=== PATIENT | male | born 1985 | race Caucasian/White ===

== ENCOUNTER 2019-01-21 12:16 | Emergency (ER) | payer SELFPAY ==
[2019-01-21 12:51] LABS: Absolute Lymphocytes (CBC) 1.4 K/uL (0.7-4.9); Basophils % 0.4 % (0-1.3); Hematocrit 45.6 % (39.6-49.0); Lymphocytes % 19.4 % (15.3-44.8); MPV 9.1 fL (7.6-11.3); RBC Red Blood Cell Count 5.05 M/uL (4.33-5.43)
[2019-01-21 12:58] LABS: Protime INR 1.07
[2019-01-21 13:08] LABS: ALT/SGPT 38 U/L (12-78); AST/SGOT 12 U/L (15-37); Albumin 3.9 g/dL (3.4-5.0); Alkaline Phosphatase 84 U/L (45-117); BUN Blood Urea Nitrogen 12 mg/dL (7-18); Bicarbonate 27 mmol/L (21-32); Bilirubin Direct 0.2 mg/dL (0-0.2); Bilirubin Total 0.9 mg/dL (0.2-1.0); Glucose Level 82 mg/dL (74-106); Magnesium 2.2 mg/dL (1.8-2.4); NT PRO-BNP 22 pg/mL (<125); Potassium 3.8 mmol/L (3.5-5.1); Sodium Level 141 mmol/L (136-145); Troponin (Emerg Dept Use Only) < 0.02 ng/mL (0.0-0.045)
--- NOTE | 2019-01-21 13:12 | RAD REPORT ---
EXAM DESCRIPTION: RAD - Chest Single View - 01/21/2019 1:01 pm CLINICAL HISTORY: Chest pain COMPARISON: None. TECHNIQUE: AP portable chest image was obtained 1247 hours . FINDINGS: Lungs are clear. Heart and vasculature are normal. No measurable pleural effusion and no p neumothorax. No acute bony abnormality seen. No acute aortic findings suspected. IMPRESSION: No acute cardiopulmonary process.
--- NOTE | 2019-01-21 13:21 | ER ---
Nurse's Notes [facility] Name: Kenneth Michele Age: 33 yrs Sex: Male : 1985 Arrival Date: 01/21/2019 Time: 12:18 Bed 7 Private MD: Diagnosis: Chest pain, unspecified Presentation: 01/21 12:28 Presenting complaint: Patient states: Last night I was laying in bed and started la1 feeling a pain on the side of my chest. It hurts worse when I take a deep breath but is constant. Transition of care: patient was not received from another setting of care. Onset of symptoms was January 21, 2019. Risk Assessment: Do you want to hurt yourself or someone else? Patient reports no desire to harm self or others. Initial Sepsis Screen: Does the patient meet any 2 criteria? No. Patient's initial sepsis screen is negative. Does the patient have a suspected source of infection? No. Patient's initial sepsis screen is negative. Care prior to arrival: None. 12:28 Method Of Arrival: Ambulatory la1 12:28 Acuity: CAIMLA 3 la1 Historical: - Allergies: 12:29 No Known Allergies; la1 - Home Meds: 12:29 None [Active]; la1 - PMHx: 12:29 None; la1 - PSHx: 12:29 Appendectomy; la1 - Immunization history:: Adult Immunizations up to date. - Social history:: Smoking status: Patient/guardian denies using tobacco. - Ebola Screening: : No symptoms or risks identified at this time. Screenin:30 Abuse screen: Denies threats or abuse. Nutritional screening: No deficits noted. la1 Tuberculosis screening: No symptoms or risk factors identified. Fall Risk None identified. Assessment: 12:29 General: Appears uncomfortable, Behavior is calm, cooperative. Pain: Complains of pain la1 in left lateral anterior chest Pain does not radiate. Pain currently is 2 out of 10 on a pain scale. Quality of pain is described as sharp, Pain began 1 day ago. Neuro: Level of Consciousness is awake, alert, obeys commands, Oriented to person, place, time, situation. Cardiovascular: Denies lightheadedness, shortness of breath, syncope, Heart tones S1 S2 present Capillary refill < 3 seconds Patient's skin is warm and dry. Rhythm is sinus rhythm. Respiratory: Airway is patent Respiratory effort is even, unlabored, Respiratory pattern is regular, symmetrical, Breath sounds are clear bilaterally. GI: No signs and/or symptoms were reported involving the gastrointestinal system. : No signs and/or symptoms were reported regarding the genitourinary system. 13:31 Reassessment: Patient appears in no apparent distress at this time. No changes from la1 previously documented assessment. Patient and/or family updated on plan of care and expected duration. Pain level reassessed. Patient is alert, oriented x 3, equal unlabored respirations, skin warm/dry/pink. Vital Signs: 12:29 BP 146 / 97; Pulse 86; Resp 16; Temp 98.7; Pulse Ox 98% on R/A; Weight 113.4 kg; Height la1 6 ft. 3 in. (190.50 cm); 13:31 BP 136 / 74; Pulse 84; Resp 16; Pulse Ox 98% on R/A; la1 12:29 Body Mass Index 31.25 (113.40 kg, 190.50 cm) la1 ED Course: 12:18 Patient arrived in ED. mr 12:20 Hussain Smith PA is PHCP. jmm 12:20 He Villegas MD is Attending Physician. jmm 12:24 EKG done, by ct scan special procedures technologist. reviewed by Hussain LINDSAY. at1 12:27 Jerry Roberts, TERELL is Primary Nurse. la1 12:28 Triage completed. la1 12:29 Arm band placed on left wrist. la1 12:30 Call light in reach. Side rails up X 1. monitoring analyst on. Pulse ox on. NIBP on. la1 12:31 No provider procedures requiring assistance completed. Patient maintains SpO2 la1 saturation greater than 95% on room air. 12:37 Inserted saline lock: 20 gauge in right antecubital area, using aseptic technique. la1 Blood collected. 13:02 XRAY Chest (1 view) In Process Unspecified. EDMS 13:32 intact, bleeding controlled, No redness/swelling at site. Pressure dressing applied. la1 Administered Medications: No medications were administered Outcome: 13:19 Discharge ordered by . jmm 13:32 Discharged to home ambulatory. la1 13:32 Condition: stable 13:32 Discharge instructions given to patient, Instructed on discharge instructions, follow up and referral plans. Demonstrated understanding of instructions, follow-up care. 13:32 Patient left the ED. la1 Signatures: Dispatcher [employer] EDMS Hussain Smith PA PA jmm Rivera, Mary mr Lopez, Teresa, trim mounter EKG Tat1 Jerry Roberts RN RN la1
--- NOTE | 2019-01-21 13:21 | EDPHYS ---
Physician Documentation [facility] Name: Kenneth Michele Age: 33 yrs Sex: Male : 1985 Arrival Date: 01/21/2019 Time: 12:18 Bed 7 Private MD: ED Physician He Villegas HPI: 01/21 12:21 This 33 yrs old Male presents to ER via Ambulatory with complaints of Chest [facility] Pain. 12:21 The patient or guardian reports chest pain that is located primarily in the anterior [facility] chest wall, left. The pain does not radiate. Associated signs and symptoms: Pertinent negatives: abdominal pain, dizziness, headache, lower extremity pain, lower extremity swelling, recent travel, shortness of breath. The chest pain is described as sharp. This is a 33 year old male with no chronic medical conditions that presents to the ED with complaints of left sided chest pain beginning last night. Pain is worsened with deep inspiration. Patient denies injury. Denies history of CAD, HTN, HLP, DM. . Historical: - Allergies: 12:29 No Known Allergies; la1 - Home Meds: 12:29 None [Active]; la1 - PMHx: 12:29 None; la1 - PSHx: 12:29 Appendectomy; la1 - Immunization history:: Adult Immunizations up to date. - Social history:: Smoking status: Patient/guardian denies using tobacco. - Ebola Screening: : No symptoms or risks identified at this time. ROS: 12:21 Constitutional: Negative for fever, chills, and weight loss. jmm 12:21 Abdomen/GI: Negative for abdominal pain, nausea, vomiting, diarrhea, and constipation, Back: Negative for injury and pain, Skin: Negative for injury, rash, and discoloration, Neuro: Negative for headache, weakness, numbness, tingling, and seizure. 12:21 Cardiovascular: Positive for chest pain. 12:21 Respiratory: Positive for shortness of breath. 12:21 All other systems are negative. Exam: 12:21 Constitutional: This is a well developed, well nourished patient who is awake, alert, jmm and in no acute distress. Head/Face: atraumatic. Eyes: EOMI, no conjunctival erythema appreciated ENT: Moist Mucus Membranes Neck: Trachea midline, Supple 12:21 Abdomen/GI: Non distended, soft Back: Normal ROM Skin: General appearance color normal MS/ Extremity: Moves all extremities, no obvious deformities appreciated, no edema noted to the lower extremities Neuro: Awake and alert, normal gait Psych: Behavior is normal, Mood is normal, Patient is cooperative and pleasant 12:21 Chest/axilla: Palpation: tenderness, of the left lateral anterior chest, that totally reproduces the patient's complaints. 12:21 Cardiovascular: Rate: normal, Rhythm: regular. 12:21 Respiratory: the patient does not display signs of respiratory distress, Respirations: normal, Breath sounds: are clear throughout. 13:08 ECG was reviewed by the Attending Physician. [facility] Vital Signs: 12:29 BP 146 / 97; Pulse 86; Resp 16; Temp 98.7; Pulse Ox 98% on R/A; Weight 113.4 kg; Height la1 6 ft. 3 in. (190.50 cm); 13:31 BP 136 / 74; Pulse 84; Resp 16; Pulse Ox 98% on R/A; la1 12:29 Body Mass Index 31.25 (113.40 kg, 190.50 cm) la1 MDM: 12:21 Patient medically screened. [facility] 13:18 Data reviewed: vital signs, nurses notes. Counseling: I had a detailed discussion with [facility] the patient and/or guardian regarding: the historical points, exam findings, and any diagnostic results supporting the discharge/admit diagnosis, lab results, radiology results, the need for outpatient follow up, to return to the emergency department if symptoms worsen or persist or if there are any questions or concerns that arise at home. ED course: HEART SCORE = 1 PERC NEGATIVE. 01/21 12:32 Order name: Basic Metabolic Panel [facility] 01/21 12:32 Order name: CBC with Diff [facility] 01/21 12:32 Order name: LFT's; Complete Time: 13:14 [facility] 01/21 12:32 Order name: Magnesium; Complete Time: 13:14 [facility] 01/21 12:32 Order name: NT PRO-BNP; Complete Time: 13:14 [facility] 01/21 12:32 Order name: PT-INR; Complete Time: 13:14 [facility] 01/21 12:32 Order name: Troponin (emerg Dept Use Only); Complete Time: 13: [facility] 01/21 12:32 Order name: XRAY Chest (1 view); Complete Time: 13:14 [facility] 01/21 12:32 Order name: EKG; Complete Time: 12:33 [facility] 01/21 12:32 Order name: Cardiac monitoring; Complete Time: 12:37 [facility] 01/21 12:32 Order name: EKG - Nurse/Tech; Complete Time: 12:37 [facility] 01/21 12:32 Order name: IV Saline Lock; Complete Time: 12:37 [facility] 01/21 12:33 Order name: Basic Metabolic Panel; Complete Time: 13:14 [facility] 01/21 12:33 Order name: CBC with Automated Diff; Complete Time: 13:14 [facility] 01/21 12:32 Order name: Labs collected and sent; Complete Time: 12:37 [facility] 01/21 12:32 Order name: O2 Per Protocol; Complete Time: 12:37 [facility] 01/21 12:32 Order name: O2 Sat Monitoring; Complete Time: 12:37 jmm EC:08 Rate is 75 beats/min. Rhythm is regular. QRS Milton is Normal. NV interval is normal. QRS jmm interval is normal. QT interval is normal. No Q waves. T waves are Normal. No ST changes noted. Reviewed by me. Administered Medications: No medications were administered Disposition: 13:50 Co-signature as Attending Physician, He Villegas MD I agree with the assessment and carine plan of care. Disposition: 01/21/19 13:19 Discharged to Home. Impression: Chest pain, unspecified. - Condition is Stable. - Discharge Instructions: Nonspecific Chest Pain. - Medication Reconciliation Form, Thank You Letter, Antibiotic Education, Prescription Opioid Use form. - Follow up: Private Physician; When: 2 - 3 days; Reason: Recheck today's complaints, Continuance of care, Re-evaluation by your physician. Signatures: Dispatcher [employer] He Brantley MD MD cha Mickail, Joel, PA PA jmm Attema, Lee RN RN la1 Corrections: (The following items were deleted from the chart) 13:32 13:19 01/21/2019 13:19 Discharged to Home. Impression: Chest pain, unspecified. la1 Condition is Stable. Forms are Medication Reconciliation Form, Thank You Letter, Antibiotic Education, Prescription Opioid Use. Follow up: Private Physician; When: 2 - 3 days; Reason: Recheck today's complaints, Continuance of care, Re-evaluation by your physician. mell
--- NOTE | 2019-01-22 11:48 | EKG ---
Test Date: 2019-01-21 Test Time: 12:23:40 C D Area Supervisor: JOCELYN MEASUREMENT RESULTS: Intervals: Rate: 75 AR: 136 QRSD: 84 QT: 360 QTc: 402 [place]: P: 42 AR: 136 QRS: 36 T: 48 INTERPRETIVE STATEMENTS: Normal sinus rhythm Normal ECG No previous ECG available for comparison Electronically Signed On 01-22-19 11:45:23 CDT by Milton Pryor
== END 2019-01-21 13:32 | disposition home or self-care (01) ==
LOC: ER 12:16
DX: R07.9 Chest pain, unspecified (principal)
CPT/HCPCS: 36415; 71045; 80048; 80076; 83735; 83880; 84484; 85025; 85610; 93005; 99285

== ENCOUNTER 2022-04-16 23:07 | Emergency (ER) | payer OTHER ==
--- OUTSIDE RECORDS SUMMARY | 2022-04-16 23:16 | XMS REPORT | Continuity of Care Document ---
:1985 Author Organization [facility] t Address [address] [place] [address] Care Team Providers Name Role Phone ChesterMirtha alvarenga Attending Clinician Unavailable Problems Condition Condition Condition Status Onset Resolution Last Treating Co mments Source Name Details Category Date Date Treatment Clinician Date [id number] Other Problem Active Common chronic [facility] [id number] Depression Problem Active Co mmon with [facility] anxiety - [facility] [id number] Neuropathy Problem Active Co mmon [facility] [id number] Allergic Problem Active Commo n rhinitis, [facility] trigger [id number] Irritable Problem Active Comm on bowel [facility] syndrome [facility] with [facility] [id number] Acquired Problem Active Comm on scoliosis [facility] Allergies, Adverse Reactions, Alerts This patient has no known allergies or adverse reactions. Social History Social Habit Start Date Stop Date Quantity Comments Source History of Tobacco Former Smoker Com mon [facility] Sex Assigned At Com mon [facility] Smoking Status Start Date Stop Date Source Former Smoker 2020-03-14 00:00:00 2020-03-14 00:00:00 Common S pirit - [facility] Medications Ordered Filled Start Stop Current Ordering Indication Dosage Frequency Signature Comments Components Source Medication Medication Date Date Medication? Clinician (SIG) Name Name Montelukast Montelukast 2019-06 No 1{table QD Montelukas Sodium 10 Sodium 10 0-06 t} t Sodium MG MG 00:00: 10 MG 00 Immunizations Ordered Immunization Filled Immunization Date Status Commen ts Source Name Name Afluria single dose Afluria single dose 2019-03-17 Completed [facility] 08:40:00 [facility] Adacel (Tdap) Adacel (Tdap) 2019-03-15 Completed Common S pirit 08:40:00 [facility] Vital Signs Vital Name Observation Time Observation Value Comments Source height 2020-03-14 09:00:00 74 [in_i] [facility] weight 2020-03-14 09:00:00 259.2 [lb_av] [facility] temperature 2020-03-14 09:00:00 97.9 [degF] [facility] bmi 2020-03-14 09:00:00 33.28 kg/m2 [facility] oximetry 2020-03-14 09:00:00 98 % [facility] respiratory rate 2020-03-14 09:00:00 18 /min Comm on [facility] blood pressure 2020-03-14 09:00:00 143 mm[Hg] [facility] systolic [facility] blood pressure 2020-03-14 09:00:00 88 mm[Hg] [facility] diastolic [facility] Procedures This patient has no known procedures. Encounters Start End Encounter Admission Attending Care Care Encounter Source Date/Time Date/Time Type Type Clinicians Facility Department ID 2022-04-01 Outpatient Yaquelin, [facility] [id number] Common 15:21:01 Mirtha [id number] [facility] 2021-07-04 Outpatient [facility] [id number] Common 11:52:11 [id number] [facility] 2020-03-14 2020-03-14 [facility] [id number] Co mmon 00:00:00 00:00:00 VISIT DOMINIK Seaman it PT LEVEL 3 [facility] Results This patient has no known results.
[2022-04-17] MEDS ORDERED: FAMOTIDINE 20 MG/2 ML VIAL IV ONE (00:08)
[2022-04-17] MEDS ORDERED: NA CHLORIDE 0.9% 1,000 ML ONE (00:08)
[2022-04-17] MEDS ORDERED: METHYLPREDNISOLONE 125 MG INJ ONE (00:08)
[2022-04-17] MEDS ORDERED: DIPHENHYDRAMINE 50 MG/ML VIAL ONE (00:08)
--- NOTE | 2022-04-17 01:51 | ER ---
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 Coronavirus screen: Vaccine status: Patient reports receiving the 2nd dose of the covid vaccine. Ebola Screen: Patient negative for fever greater than or equal to 101.5 degrees Fahrenheit, and additional compatible Ebola Virus Disease symptoms. Onset: The symptoms/episode began/occurred suddenly, 1 hour(s) ago. Anaphylaxis evaluation, no signs or symptoms of anaphylaxis were noted. Initial Sepsis Screen: Does the patient meet any 2 criteria? No. Patient's initial sepsis screen is negative. Does the patient have a suspected source of infection? No. Patient's initial sepsis screen is negative. Risk Assessment: Do you want to hurt yourself or someone else? Patient reports no desire to harm self or others. 23:34 Method Of Arrival: Ambulatory kl 23:34 Acuity: CAMILA 4 kl 04/17 00:22 Onset of symptoms is unknown. as6 Triage Assessment: 04/16 23:38 General: Appears in no apparent distress. comfortable, Behavior is calm, cooperative. kl EENT: swelling noted to bottom lip. Respiratory: No deficits noted. Airway is patent Trachea midline Respiratory effort is even, unlabored, no difficulty handling secretions. Historical: - Allergies: 23:38 No Known Allergies; kl - PMHx: 23:38 Hives; RA; scoliosis; kl - PSHx: 23:38 Appendectomy; kl - Immunization history:: Adult Immunizations up to date. - Social history:: Smoking status: Patient reports the use of cigarette tobacco products, former. Screenin/09 00:21 Abuse screen: Denies threats or abuse. Denies injuries from another. Nutritional as6 screening:. Tuberculosis screening: No symptoms or risk factors identified. Fall Risk None identified. Assessment: 00:20 General: Appears in no apparent distress. Behavior is calm, cooperative. Pain: as6 Complains of pain in generalized Quality of pain is described as stinging. Derm: Reports itching. Vital Signs: 04/16 23:34 BP 154 / 94; Pulse 72; Resp 16; Temp 98.2(O); Pulse Ox 97% on R/A; Weight 115.67 kg kl (R); Height 6 ft. 1 in. (185.42 cm); Pain 0/10; 04/17 00:22 BP 111 / 82; Pulse 76; Resp 18 S; Pulse Ox 98% on R/A; as6 01:35 BP 139 / 84; Pulse 80; Resp 18 S; Pulse Ox 98% on R/A; as6 04/16 23:34 Body Mass Index 33.64 (115.67 kg, 185.42 cm) ED Course: 04/16 23:13 Patient arrived in ED. ja2 23:15 He Perez PA is PHCP. cp 23:15 Angle Yee MD is Attending Physician. cp 23:29 Wang Terry RN is Primary Nurse. as6 23:38 Triage completed. kl 23:46 Arm band placed on. as6 04/17 00:20 Inserted saline lock: 20 gauge in left forearm, using aseptic technique. as6 00:21 Bed in low position. Call light in reach. as6 01:35 No provider procedures requiring assistance completed. IV discontinued, intact, as6 bleeding controlled, No redness/swelling at site. Pressure dressing applied. Administered Medications: 00:19 Drug: Benadryl (diphenhydrAMINE) 50 mg Route: IVP; Site: left forearm; as6 01:34 Follow up: Response: No adverse reaction as6 00:19 Drug: Pepcid (famotidine) 20 mg Route: IVP; Site: left forearm; as6 01:34 Follow up: Response: No adverse reaction as6 00:19 Drug: SOLU-Medrol (methylPrednisoLONE) 125 mg Route: IVP; Site: left forearm; as6 01:34 Follow up: Response: No adverse reaction as6 00:19 Drug: NS 0.9% 1000 ml Route: IV; Rate: 1 bolus; Site: left forearm; as6 01:34 Follow up: Response: No adverse reaction; IV Status: Completed infusion; IV Intake: as6 1000ml Medication: 00:22 VIS not applicable for this client. as6 Intake: 01:34 IV: 1000ml; Total: 1000ml. as6 Outcome: 01:28 Discharge ordered by MD. pereira 01:35 Discharged to home ambulatory. as6 01:35 Condition: stable 01:35 Discharge instructions given to patient, Instructed on discharge instructions, follow up and referral plans. medication usage, Demonstrated understanding of instructions, follow-up care, medications, Prescriptions given X 3. 01:36 Patient left the ED. as6 Signatures: Britney Gill RN RN He Coto PA PA cp Alexander, Jessica ja2 Slawson, Ashby, RN RN as6
--- NOTE | 2022-04-17 01:51 | EDPHYS ---
Physician Documentation [facility] Name: Kenneth Michele Age: 36 yrs Sex: Male : 1985 Arrival Date: 04/16/2022 Time: 23:13 Bed 15 Private MD: ED Physician Angle Yee HPI: 04/17 00:00 This 36 yrs old Male presents to ER via Ambulatory with complaints of Hives, Allergic cp Reaction. 00:00 The patient presents with rash, that is diffuse. Onset: The symptoms/episode cp began/occurred 12 week(s) ago. 00:00 Associated signs and symptoms: Pertinent positives: lower lip swelling that started cp tonight. 00:00 Possible causes: The patient has no known obvious cause for the symptoms. At home the cp patient or guardian has treated the symptoms with OTC Kae. Severity of symptoms: in the emergency department the symptoms are unchanged despite home interventions. Historical: - Allergies: 04/16 23:38 No Known Allergies; kl - PMHx: 23:38 Hives; RA; scoliosis; kl - PSHx: 23:38 Appendectomy; kl - Immunization history:: Adult Immunizations up to date. - Social history:: Smoking status: Patient reports the use of cigarette tobacco products, former. ROS: 04/17 00:05 Constitutional: Negative for body aches, chills, fever, poor PO intake. cp 00:05 Eyes: Negative for injury, pain, redness, and discharge. cp 00:05 ENT: Positive for lower lip swelling, Negative for sore throat, difficulty swallowing, difficulty handling secretions. 00:05 Cardiovascular: Negative for chest pain. 00:05 Respiratory: Negative for cough, shortness of breath, wheezing. 00:05 Abdomen/GI: Negative for abdominal pain, nausea, vomiting, and diarrhea. 00:05 Skin: Positive for rash, diffusely. 00:05 All other systems are negative. Exam: 00:10 Constitutional: The patient appears in no acute distress, alert, awake, non-toxic, well cp developed, well nourished. 00:10 Head/Face: Normocephalic, atraumatic. cp 00:10 Eyes: Periorbital structures: appear normal, Conjunctiva: normal, no exudate, no injection, Sclera: no appreciated abnormality, Lids and lashes: appear normal, bilaterally. 00:10 ENT: External ear(s): are unremarkable, Nose: is normal, Mouth: Lips: mild swelling of lower lip, Oral mucosa: pink and intact, moist, Posterior pharynx: Airway: no evidence of obstruction, patent, swelling, is not appreciated, erythema, is not appreciated. 00:10 Neck: ROM/movement: is normal, is supple, without pain, no range of motions limitations. 00:10 Cardiovascular: Rate: normal, Rhythm: regular. 00:10 Respiratory: the patient does not display signs of respiratory distress, Respirations: normal, no use of accessory muscles, no retractions, labored breathing, is not present, Breath sounds: are clear throughout, no decreased breath sounds, no stridor, no wheezing. 00:10 Abdomen/GI: Exam negative for discomfort, distension, guarding, Inspection: abdomen appears normal. 00:10 Skin: consistent with urticaria, and is diffusely located. 00:10 Neuro: Orientation: to person, place \T\ time. Mentation: is normal. Vital Signs: 04/16 23:34 BP 154 / 94; Pulse 72; Resp 16; Temp 98.2(O); Pulse Ox 97% on R/A; Weight 115.67 kg kl (R); Height 6 ft. 1 in. (185.42 cm); Pain 0/10; 04/17 00:22 BP 111 / 82; Pulse 76; Resp 18 S; Pulse Ox 98% on R/A; as6 01:35 BP 139 / 84; Pulse 80; Resp 18 S; Pulse Ox 98% on R/A; as6 04/16 23:34 Body Mass Index 33.64 (115.67 kg, 185.42 cm) MDM: 04/16 23:47 Patient medically screened. cp 04/17 00:00 Differential diagnosis: anaphylaxis, angioedema, urticaria. cp 01:27 Data reviewed: vital signs, nurses notes. 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 Response to treatment: the patient's symptoms have mildly improved after treatment, and as a result, I will discharge patient. 04/16 23:56 Order name: IV; Complete Time: 00:19 cp Administered Medications: 00:19 Drug: Benadryl (diphenhydrAMINE) 50 mg Route: IVP; Site: left forearm; as6 01:34 Follow up: Response: No adverse reaction as 00:19 Drug: Pepcid (famotidine) 20 mg Route: IVP; Site: left forearm; as6 01:34 Follow up: Response: No adverse reaction 00:19 Drug: SOLU-Medrol (methylPrednisoLONE) 125 mg Route: IVP; Site: left forearm; as6 01:34 Follow up: Response: No adverse reaction 00:19 Drug: NS 0.9% 1000 ml Route: IV; Rate: 1 bolus; Site: left forearm; as6 01:34 Follow up: Response: No adverse reaction; IV Status: Completed infusion; IV Intake: as6 1000ml Disposition Summary: 04/17/22 01:28 Discharge Ordered Location: Home cp Problem: an ongoing problem cp Symptoms: have improved cp Condition: Stable cp Diagnosis - Allergy, unspecified cp Followup: cp - With: Private Physician - When: 2 - 3 days - Reason: Recheck today's complaints Discharge Instructions: - Discharge Summary Sheet cp - Hives cp - Allergy Skin Testing cp - Allergy Blood Testing cp Forms: - Medication Reconciliation Form cp - Thank You Letter cp - Antibiotic Education cp - Prescription Opioid Use cp Prescriptions: - Pepcid 20 mg Oral Tablet - take 1 tablet by ORAL route every 12 hours for 5 days; 10 tablet; Refills: 0, cp Product Selection Permitted - Prednisone 20 mg Oral Tablet - take 2 tablets by ORAL route once daily for 5 days; 10 tablet; Refills: 0, cp Product Selection Permitted Signatures: Britney Gill, RN RN He Coto PA PA cp Wang Terry RN RN as6
[2022-04-17 06:18] VITALS: TEMP 98.2
[2022-04-17 06:24] VITALS: BP 139/84; O2SAT 98
== END 2022-04-17 01:36 | disposition home or self-care (01) ==
LOC: ER 23:07
DX: R21 Rash and other nonspecific skin eruption (principal); Z91.09 Other allergy status, other than to drugs and biological substances
CPT/HCPCS: 96361; 96375; 96374; 99283; J1200; J7030; J2930

== ENCOUNTER 2023-02-11 10:28 | Emergency (ER) | payer OTHER ==
--- OUTSIDE RECORDS SUMMARY | 2023-02-11 10:32 | XMS REPORT | Continuity of Care Document ---
:1985 Author Organization [facility] t Address [address] [place] [address] [place] [id number] Care Team Providers Name Role Phone PCP, PATIENT DOES NOT HAVE A Primary Care Physician Unavaila Mirtha Gaytan Attending Clinician Unavailable BOLIVAR BOOTH Attending Clinician Unavailable Doctor Unassigned, [place] Attending Clinician Unavailable Amber Latif MD Attending Clinician Brie Hyatt MD Attending Clinician BRIE HYATT Attending Clinician Unavailable Payers Payer Name Policy Type Policy Number Effective Date Expiration Date S cristobal [facility] [id number] 2022 00:00:00 [place] [id number] 2022 [facility] 00:00:00 [facility] Problems Condition Condition Condition Status Onset Resolution Last Treating Co mments Source Name Details Category Date Date Treatment Clinician Date [id number] Other Problem Common chronic Spirit pain [facility] [id number] Chronic Problem Commo n sciatica Spirit of left - [facility] side [facility] [id number] Depression Problem Co mmon with Spirit anxiety - [facility] [id number] Neuropathy Problem Co mmon [facility] - [facility] [id number] Allergic Problem Commo n rhinitis, Spirit unspecifie - [facility]I d [facility] seasonalit 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 on and Medical diarrhea Center [id number] Acquired Problem Comm on scoliosis [facility] - [facility] No known No known Disease Unive rs active active ity of problems problems [facility] Allergies, Adverse Reactions, Alerts Allergy Allergy Status Severity Reaction(s) Onset Inactive Treating Comm ents Source Name Type Date Date Clinician NO KNOWN Drug Active Univers ALLERGIE Class ity of S [facility] Social History Social Habit Start Date Stop Date Quantity Comments Source History of Tobacco [facility] Use [facility] Exposure to 2022-04-15 2022-04-25 Not sure [facility] SARS-CoV-2 (event) 00:00:00 10:51:00 [facility] Sex Ass[birth year] [facility] 00:00:00 00:00:00 Medical Branch Smoking Status Start Date Stop Date Source Tobacco smoking [facility] xa consumption unknown Medical Bran ch Former Smoker 2022-06-20 00:00:00 2022-06-20 [facility] 00:00:00 [facility] nter Medications Ordered Filled Start Stop Current Ordering Indication Dosage Frequency Signature Comments Components Source Medication Medication Date Date Medication? Clinician (SIG) Name Name Diclofenac Diclofenac 2022- No 1{table BID Diclofenac Sodium 50 Sodium 50 07-15 t_as_ne Sodium 50 MG MG 00:00: 00:00 eded} MG 00 :00 Diclofenac Diclofenac 2022- No 1{table BID Diclofenac Sodium 50 Sodium 50 07-15- t_as_ne Sodium 50 MG MG 00:00: 00:00 eded} MG 00 :00 Venlafaxine Venlafaxine No 1{table QD Venlafaxin HCl ER 37.5 HCl ER 37.5 1-16 t_with_ e HCl ER MG MG 00:00: food} 37.5 MG 00 Venlafaxine Venlafaxine No 1{table QD Venlafaxin HCl ER 37.5 HCl ER 37.5 1-16 t_with_ e HCl ER MG MG 00:00: food} 37.5 MG 00 Venlafaxine Venlafaxine No 1{table QD Venlafaxin HCl ER 37.5 HCl ER 37.5 1-16 t_with_ e HCl ER MG MG 00:00: food} 37.5 MG 00 Venlafaxine Venlafaxine No 1{table QD Venlafaxin HCl ER 37.5 HCl ER 37.5 1-16 t_with_ e HCl ER MG MG 00:00: food} 37.5 MG 00 Venlafaxine Venlafaxine No 1{table QD Venlafaxin HCl ER 37.5 HCl ER 37.5 1-16 t_with_ e HCl ER MG MG 00:00: food} 37.5 MG 00 EPINEPHrine 2021-06- No [id number] .3mg 0.3 mL by Univers (EPIPEN 06-2518 Intramuscu ity o f 2-MARIBELL) 0.3 00:00: 05:59 lar route [place] mg/0.3 mL 00 :00 once now Medica l injection for 1 Branch dose. EPINEPHrine 2021-06- No [id number] .3mg 0.3 mL by Univers (EPIPEN 06-2518 Intramuscu ity o f 2-MARIBELL) 0.3 00:00: 05:59 lar route [place] mg/0.3 mL 00 :00 once now Medica l injection for 1 Branch dose. Montelukast Montelukast 2019-06 No 1{table QD Montelukas Sodium 10 Sodium 10 0-06 t} t Sodium MG MG 00:00: 10 MG 00 Montelukast Montelukast 2019-06 No 1{table QD Montelukas Sodium 10 Sodium 10 0-06 t} t Sodium MG MG 00:00: 10 MG 00 Montelukast Montelukast 2019-06 No 1{table QD Montelukas Sodium 10 Sodium 10 0-06 t} t Sodium MG MG 00:00: 10 MG 00 Montelukast Montelukast 2019-06 No 1{table QD Montelukas Sodium 10 Sodium 10 0-06 t} t Sodium MG MG 00:00: 10 MG 00 Montelukast Montelukast 2019-06 No 1{table QD Montelukas Sodium 10 Sodium 10 0-06 t} t Sodium MG MG 00:00: 10 MG 00 Montelukast Montelukast 2019-06 No 1{table QD Montelukas Sodium 10 Sodium 10 0-06 t} t Sodium MG MG 00:00: 10 MG 00 No known No No known Unive rs medications 2-05 medication it y of 16:49: s [address] Branch Immunizations Ordered Immunization Filled Immunization Date Status Commen ts Source Name Name Flucelvax - single Flucelvax - single 2022-06-20 Completed [facility] dose syringe dose syringe 13:19:00 - [facility] Flucelvax - single Flucelvax - single 2022-06-20 Completed [facility] dose syringe dose syringe 13:19:00 - [facility] Flucelvax - single Flucelvax - single 2022-06-20 Completed [facility] dose syringe dose syringe 13:19:00 - [facility] Flucelvax - single Flucelvax - single 2022-06-20 Completed [facility] dose syringe dose syringe 13:19:00 - [facility] Flucelvax - single Flucelvax - single 2022-06-20 Completed [facility] dose syringe dose syringe 13:19:00 [facility] Afluria single dose Afluria single dose 2019-03-17 Completed [facility] 08:40:00 [facility] Afluria single dose Afluria single dose 2019-03-17 Completed [facility] 08:40:00 [facility] Afluria single dose Afluria single dose 2019-03-17 Completed [facility] 08:40:00 [facility] Afluria single dose Afluria single dose 2019-03-17 Completed [facility] 08:40:00 [facility] Afluria single dose Afluria single dose 2019-03-17 Completed [facility] 08:40:00 [facility] Afluria single dose Afluria single dose 2019-03-17 Completed [facility] 08:40:00 [facility] Adacel (Tdap) Adacel (Tdap) 2019-03-15 Completed Common S pirit 08:40:00 [facility] Adacel (Tdap) Adacel (Tdap) 2019-03-15 Completed Common S pirit 08:40:00 - [facility] Adacel (Tdap) Adacel (Tdap) 2019-03-15 Completed Common S pirit 08:40:00 - [facility] Adacel (Tdap) Adacel (Tdap) 2019-03-15 Completed Common S pirit 08:40:00 - [facility] Adacel (Tdap) Adacel (Tdap) 2019-03-15 Completed Common S pirit 08:40:00 - [facility] Adacel (Tdap) Adacel (Tdap) 2019-03-15 Completed Common S pirit 08:40:00 [facility] Vital Signs Vital Name Observation Time Observation Value Comments Source height 2022-06-20 13:20:00 74 [in_i] [facility] weight 2022-06-20 13:20:00 253.8 [lb_av] [facility] temperature 2022-06-20 13:20:00 98.0 [degF] [facility] bmi 2022-06-20 13:20:00 32.58 kg/m2 [facility] oximetry 2022-06-20 13:20:00 97 % [facility] respiratory rate 2022-06-20 13:20:00 16 /min Comm on [facility] blood pressure 2022-06-20 13:20:00 131 mm[Hg] [facility] [place] [place] - systolic [facility] blood pressure 2022-06-20 13:20:00 81 mm[Hg] Common [facility] - diastolic [facility] height 2022-05-09 11:00:00 74 [in_i] Common [facility] weight 2022-05-09 11:00:00 252 [lb_av] [facility] temperature 2022-05-09 11:00:00 98.5 [degF] [facility] bmi 2022-05-09 11:00:00 32.35 kg/m2 Common [facility] oximetry 2022-05-09 11:00:00 98 % [facility] respiratory rate 2022-05-09 11:00:00 17 /min Comm on [facility] blood pressure 2022-05-09 11:00:00 139 mm[Hg] Common [facility] - systolic [facility] blood pressure 2022-05-09 11:00:00 76 mm[Hg] Common [facility] - diastolic [facility] Body height 2022-04-25 17:02:00 195.6 cm [facility] Medical Branch height 2020-03-14 09:00:00 74 [in_i] [facility] weight 2020-03-14 09:00:00 259.2 [lb_av] [facility] temperature 2020-03-14 09:00:00 97.9 [degF] [facility] bmi 2020-03-14 09:00:00 33.28 kg/m2 [facility] oximetry 2020-03-14 09:00:00 98 % [facility] respiratory rate 2020-03-14 09:00:00 18 /min Comm on [facility] blood pressure 2020-03-14 09:00:00 143 mm[Hg] Common [facility] - systolic [facility] blood pressure 2020-03-14 09:00:00 88 mm[Hg] [facility] diastolic [facility] Procedures Procedure Date / Time Performed Performing Clinician [facility] REFERRAL- 2022-07-24 06:01:00 Doctor Unassigned, No [facility]RESPONSE Name Medical Branch REFERRAL- 2022-07-16 06:01:00 Doctor Unassigned, No [facility] REQUEST/RESPONSE Name [facility] Branch ASSIGNMENT OF BENEFITS 2022-04-25 16:49:35 Doctor Unassigned, No [facility] Name Medical Branch Encounters Start End Encounter Admission Attending Care Care Encounter Source Date/Time Date/Time Type Type Clinicians Facility Department ID 2022-06-19 Outpatient Peach, STLMLC STLMLC [id number] Common 13:02:01 Mirtha [id number] [facility] 2022-06-18 Outpatient Peach, STLMLC STLMLC [id number] Common 08:15:03 Mirtha [id number] [facility] 2022-05-09 Outpatient Peach, STLMLC STLMLC [id number] Common 10:28:01 Mirtha [id number] [facility] 2022-04-17 Outpatient Peach, STLMLC STLMLC [id number] Common 07:29:00 Mirtha [id number] [facility] 2022-04-01 Outpatient Peach, STLMLC STLMLC [id number] Common 15:21:01 Mirtha [id number] [facility] 2021-07-04 Outpatient STLMLC STLMLC [id number] Common 11:52:11 [id number] [facility] 2022-08-26 2022-08-26 Outpatient Jeramy BOOTH [facility] [id number] Univers 08:15:00 08:15:00 BOLIVAR de la rosa [facility] 2022-07-24 2022-07-24 Orders Doctor KAYLAH [id number] Univers 00:00:00 00:00:00 Only Unassigned, ALFREDO 350.1.13.10 ity of [place] [facility] [id number] Asad as [phone] [address] 2022-07-16 2022-07-16 Orders Doctor KAYLAH [id number] Univers 00:00:00 00:00:00 Only Unassigned, ALFREDO 350.1.13.10 ity of [place] [facility] [id number] Asad as [phone] [place] [address] Branch 2022-07-16 2022-07-16 (TEL) STLC STLMLC [id number] Co mmon 00:00:00 00:00:00 [facility] 2022-07-15 2022-07-15 (TEL) STLC STLC [id number] Co mmon 00:00:00 00:00:00 [facility] 2022-06-24 2022-06-24 (TEL) STLMLC STLMLC [id number] Co mmon 00:00:00 00:00:00 [facility] 2022-06-20 2022-06-20 OFFICE STLMLC STLMLC [id number] Co mmon 00:00:00 00:00:00 VISIT Spirit ESTAB PT - [facility]I LEVEL 4 [facility] 2022-05-09 2022-05-09 OFFICE STLMLC STLMLC [id number] Co mmon 00:00:00 00:00:00 VISIT Spirit ESTAB PT - [facility] LEVEL 4 [facility] 2022-04-25 2022-04-25 Office Amber LatifIT 1.2.84 [id number] [id number] Univers 11:00:00 11:15:00 Visit Brie Hyatt [facility] 350.1.13.1 0 ity of [facility] [id number] [place] [phone] [place] [address] Branch 2022-04-25 2022-04-25 Outpatient R OLENA [facility] [id number] Univers 11:00:00 11:00:00 BRIE de la rosa [facility] 2022-04-25 2022-04-25 Orders Doctor KAYLAH [id number] Univers 00:00:00 00:00:00 Only Unassigned, ALFREDO 350.1.13.10 ity of [place] [facility] [id number] [place]ad as [phone] [place] [address] Branch 2020-03-14 2020-03-14 OFFICE STLMLC STLMLC [id number] Co mmon 00:00:00 00:00:00 VISIT DOMINIK Seaman it PT LEVEL 3 - [facility] Results This patient has no known results.
--- NOTE | 2023-02-11 11:38 | RAD REPORT ---
EXAM DESCRIPTION: RAD - Knee Left 3 View - 02/11/2023 11:33 am CLINICAL HISTORY: PAIN COMPARISON: No comparisons FINDINGS: Transverse fracture is seen involving the fibular head. Small suprapatellar joint effusion . No fracture or dislocation.
--- NOTE | 2023-02-11 11:52 | RAD REPORT ---
EXAM DESCRIPTION: RAD - Tib Fib Left - 02/11/2023 11:37 am CLINICAL HISTORY: PAIN COMPARISON: No comparisons FINDINGS: Transverse fracture is seen involving the left fibular head. No dislocation.
[2023-02-11] MEDS ORDERED: HYDROCODONE/APAP 10/325 TAB ONE (12:40)
--- NOTE | 2023-02-11 13:25 | EDPHYS ---
Physician Documentation [facility] Name: Kenneth Michele Age: 37 yrs Sex: Male : 1985 Arrival Date: 02/11/2023 Time: 10:28 Bed 9 Private MD: ED Physician Tucker Monique HPI: 02/11 13:21 This 37 yrs old Male presents to ER via Ambulatory with complaints of Leg Pain. rn 13:21 The patient presents with decreased range of motion, an injury, pain. The complaints rn affect the left knee. Onset: The symptoms/episode began/occurred this morning. Modifying factors: The symptoms are alleviated by nothing. the symptoms are aggravated by weight bearing, bending knee. Severity of symptoms: At their worst the symptoms were moderate, in the emergency department the symptoms are unchanged. The patient has not experienced similar symptoms in the past. Patient reports Carotaben, planted with left lower extremity, immediate pain lateral to left knee. No previous injury. Pain radiates to calf. Historical: - Allergies: 10:56 No Known Allergies; hb - PMHx: 10:56 Hives; RA; scoliosis; hb - PSHx: 10:56 Appendectomy; hb - Immunization history:: Adult Immunizations up to date. - Social history:: Smoking status: Patient denies any tobacco usage or history of. - Family history:: not pertinent. - Hospitalizations: : No recent hospitalization is reported. ROS: 13:21 Constitutional: Negative for fever, chills, and weight loss, MS/Extremity: Positive for rn injury and pain to the left lower extremity Exam: 13:21 Constitutional: This is a well developed, well nourished patient who is awake, alert, rn appears uncomfortable MS/ Extremity: Pulses equal, no cyanosis. Neurovascular intact. Tenderness along proximal left fibula and calf muscle Neuro: Motor strength 5/5 in all extremities. Sensory grossly intact. Cerebellar exam normal. Ambulatory with antalgic gait Vital Signs: 10:55 BP 156 / 81; Pulse 86; Resp 20; Temp 98.4; Pulse Ox 100% ; Pain 4/10; hb 12:27 Weight 99.79 kg; Height 5 ft. 7 in. ; mb9 13:19 BP 145 / 74; Pulse 84; Resp 18; Pulse Ox 100% on R/A; mb9 12:27 Body Mass Index 34.46 (99.79 kg, 170.18 cm) mb9 10:55 Pain Scale: Adult hb MDM: 10:39 Patient medically screened. rn 13:21 Differential diagnosis: closed fracture, Muscle head rupture, tendon rupture. Data rn reviewed: vital signs, nurses notes, radiologic studies, plain films, and as a result, I will discharge patient. Counseling: I had a detailed discussion with the patient and/or guardian regarding the historical points, exam findings, and any diagnostic results supporting the discharge/admit diagnosis, radiology results, the need for outpatient follow up, to return to the emergency department if symptoms worsen or persist or if there are any questions or concerns that arise at home. Response to treatment: the patient's symptoms have mildly improved after treatment, and as a result, I will discharge patient. Special discussion: I discussed with the patient/guardian in detail that at this point there is no indication for admission to the hospital. It is understood, however, that if the symptoms persist or worsen the patient needs to return immediately for re-evaluation. Based on the history and exam findings, there is no indication for further emergent testing or inpatient evaluation. I discussed with the patient/guardian the need to see the orthopedic surgeon for further evaluation of the symptoms. ED course: X-ray shows proximal left fibular head fracture, transverse, closed. Patient placed in knee immobilizer supplied with crutches and will follow-up with orthopedics. Return precautions given and understood.. 02/11 11:01 Order name: XRAY Knee LEFT 3 view; Complete Time: 12:13 hb 02/11 11:01 Order name: XRAY Tib Fib LEFT; Complete Time: 12:13 hb 02/11 12:19 Order name: Knee Immobilizer; Complete Time: 12:43 rn 02/11 12:19 Order name: Crutches; Complete Time: 12:43 rn Administered Medications: 12:43 Drug: Burke PO 10 mg-325 mg 1 tabs Route: PO; mb9 12:44 Follow up: Response: No adverse reaction mb9 Disposition Summary: 02/11/23 13:25 Discharge Ordered Location: Home rn Problem: new rn Symptoms: have improved rn Condition: Stable rn Diagnosis - Nondisplaced transverse fracture of shaft of left fibula, initial encounter for rn closed fracture - Proximal fibula head Followup: rn - With: Jamar Sena MD - When: As needed - Reason: Recheck today's complaints, Re-evaluation by your physician Discharge Instructions: - Discharge Summary Sheet rn - Fibular Fracture, rn on site - 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
--- NOTE | 2023-02-11 13:25 | ER ---
Nurse's Notes [facility] Name: Kenneth Michele Age: 37 yrs Sex: Male : 1985 Arrival Date: 02/11/2023 Time: 10:28 Bed 9 Private MD: Diagnosis: Nondisplaced transverse fracture of shaft of left fibula, initial encounter for closed fracture-Proximal fibula head Presentation: 02/11 10:55 Chief complaint: [place] and heard a loud snap in left lower leg when getting out of bed hb this morning, now c/o pain 09/16. Coronavirus screen: At this time, the client does not indicate any symptoms associated with coronavirus-19. Ebola Screen: No symptoms or risks identified at this time. Initial Sepsis Screen: Does the patient meet any 2 criteria? No. Patient's initial sepsis screen is negative. Does the patient have a suspected source of infection? No. Patient's initial sepsis screen is negative. Risk Assessment: Do you want to hurt yourself or someone else? Patient reports no desire to harm self or others. Onset of symptoms was February 11, 2023. 10:55 Method Of Arrival: Ambulatory hb 10:55 Acuity: CAMILA 4 hb Historical: - Allergies: 10:56 No Known Allergies; hb - PMHx: 10:56 Hives; RA; scoliosis; hb - PSHx: 10:56 Appendectomy; hb - Immunization history:: Adult Immunizations up to date. - Social history:: Smoking status: Patient denies any tobacco usage or history of. - Family history:: not pertinent. - Hospitalizations: : No recent hospitalization is reported. Screenin:25 [facility] ED Fall Risk Assessment (Adult) History of falling in the last 3 months, mb9 including since admission Yes- single mechanical fall (1 pt) Confusion or Disorientation No (0 pts) Intoxicated or Sedated No (0 pts) Impaired Gait Yes (1 pt) Mobility Assist Device Used No (0 pt) Altered Elimination No (0 pt) Score/Fall Risk Level 0 - 2 = Low Risk Oriented to surroundings, Maintained a safe environment, Educated pt \T\ family on fall prevention, incl call for assistance when getting out of bed. Abuse screen: Denies threats or abuse. Nutritional screening: No deficits noted. Tuberculosis screening: No symptoms or risk factors identified. Assessment: 12:43 Pain: Complains of pain in left leg Pain does not radiate. Pain currently is 10 out of mb9 10 on a pain scale. Quality of pain is described as throbbing, Pain began suddenly, Is continuous, Aggravated by increased activity, repositioning, weight bearing. Neuro: Owen Agitation-Sedation Scale (RASS): 0 - Alert and Calm Level of Consciousness is awake, alert, obeys commands, Oriented to person, place, time, situation, Appropriate for age. Cardiovascular: Patient's skin is warm and dry. Respiratory: Airway is patent. Derm: Skin is pink, warm \T\ dry. Musculoskeletal: Range of motion: limited in left knee. 13:20 Reassessment: Patient and/or family updated on plan of care and expected duration. Pain mb9 level reassessed. Patient is alert, oriented x 3, equal unlabored respirations, skin warm/dry/pink. Patient states feeling better. Patient states symptoms have improved. Vital Signs: 10:55 BP 156 / 81; Pulse 86; Resp 20; Temp 98.4; Pulse Ox 100% ; Pain 4/10; hb 12:27 Weight 99.79 kg; Height 5 ft. 7 in. ; mb9 13:19 BP 145 / 74; Pulse 84; Resp 18; Pulse Ox 100% on R/A; mb9 12:27 Body Mass Index 34.46 (99.79 kg, 170.18 cm) mb9 10:55 Pain Scale: Adult hb ED Course: 10:32 Patient arrived in ED. mg5 10:39 Tucker Monique MD is Attending Physician. rn 10:56 Triage completed. hb 10:56 Arm band placed on. hb 11:34 XRAY Knee LEFT 3 view In Process Unspecified. EDMS 11:39 XRAY Tib Fib LEFT In Process Unspecified. EDMS 12:25 Jeannette Restrepo, TERELL is Primary Nurse. mb9 12:26 Placed in gown. Bed in low position. Call light in reach. Side rails up X 1. Client mb9 placed on continuous cardiac and pulse oximetry monitoring. NIBP monitoring applied. 12:26 No provider procedures requiring assistance completed. mb9 12:44 Patient did not have IV access during this emergency room visit. mb9 13:24 Jamar Sena MD is Referral Physician. rn Administered Medications: 12:43 Drug: [place] PO 10 mg-325 mg 1 tabs Route: PO; mb9 12:44 Follow up: Response: No adverse reaction mb9 Medication: 12:26 VIS not applicable for this client. mb9 Outcome: 13:25 Discharge ordered by . rn 13:29 Discharged to home with crutches. mb9 13:29 Condition: stable 13:29 Discharge instructions given to patient, Instructed on discharge instructions, follow up and referral plans. Demonstrated understanding of instructions, follow-up care, medications, Prescriptions given X 2. 13:29 Patient left the ED. mb9 Signatures: Dispatcher [employer] EDMS Tucker Monique MD MD rn Baxter, Heather, RN RN hb Breneman, Mary Beth, RN RN mb9 Althea Osullivan mg5
[2023-02-11 13:55] VITALS: TEMP 98.4; O2SAT 100
[2023-02-11 13:56] VITALS: BP 145/74
== END 2023-02-11 13:29 | disposition home or self-care (01) ==
LOC: ER 10:28
DX: S82.425A Nondisplaced transverse fracture of shaft of left fibula, initial encounter for closed fracture (principal); X58.XXXA Exposure to other specified factors, initial encounter; Y93.9 Activity, unspecified; Y92.9 Unspecified place or not applicable
CPT/HCPCS: 99283